=== PATIENT | female | born 2000 | race Caucasian/White ===

== ENCOUNTER 2021-12-11 11:20 | Outpatient (CLI) | payer OTHER, SELFPAY ==
--- NOTE | ~2021-12-11 | XR_ITS ---
XR lumbar spine 2-3V DATE: 12/11/2021 11:52 INDICATION: Low back pain, pelvic pain TECHNIQUE: AP, lateral, coned lateral lumbosacral views COMPARISON: 08/28/2016 lumbar spine FINDINGS: Minimal dextroscoliosis. No fracture, spondylolisthesis or bone destruction. The lumbar pedicles are intact. Lumbar levels int erspaces are well preserved. The sacrum joints are normal. IMPRESSION: Minimal dextroscoliosis Reviewed, dictated and finalized at location A. IMPRESSION: Minimal dextroscoliosis
--- NOTE | ~2021-12-11 | XR_ITS ---
XR pelvis 1-2V DATE: 12/11/2021 11:53 INDICATION: Pelvic pain, low back pain TECHNIQUE: AP pelvis COMPARISON: None FINDINGS: The pubic symphysis and sacroiliac joints are intact. No pelvic fracture or bone destructio n. Hip joint spaces are symmetric and well preserved. IMPRESSION: Negative Reviewed, dictated and finalized at location A. IMPRESSION: Negative
== END 2021-12-11 11:21 | disposition home or self-care (01) ==
PROVIDERS: PCP Internal Medicine; Visit Provider Nurse Practitioner Family
DX: M54.50 Low back pain, unspecified (principal); R10.2 Pelvic and perineal pain
CPT/HCPCS: 72100; 72170

== ENCOUNTER 2022-01-12 09:49 | Outpatient (CLI) | payer OTHER, SELFPAY ==
--- NOTE | ~2022-01-12 | MR_ITS ---
EXAMINATION: MR lumbar spine wo con DATE: 01/12/2022 10:23 INDICATION: LOW BACK PAIN . TECHNIQUE: Magnetic resonance imaging (MRI) of the lumbar spine was performed without intravenous con trast. Sequences included sagittal T2-weighted FSE, sagittal T2-weighted FS FSE, sagittal T1-weighted FSE, and axial T2-weighted FSE. COMPARISON: X-ray lumbar spine 12/11/2021 FINDINGS: The last fully formed and hydrated disc is designated L5-S1. The marrow signal is benign an d homogenous. Conus terminates at L1. Multilevel mild disc dehydration. The following disc levels are specifically discussed: T11-T12: The disc does not extend beyond the endplate margin. There is no facet joint osteoarthritis. There is no neural foraminal stenosis. There is no central canal stenosis. T12-L1: The disc does not extend beyond the endplate margin. There is no facet joint osteoarthritis. There is no neural foraminal stenosis. There is no central canal stenosis. L1-L2: The disc does not extend beyond the endplate margin. There is no facet joint osteoarthritis. T here is no neural foraminal stenosis. There is no central canal stenosis. L2-L3: The disc does not extend beyond the endplate margin. There is no facet joint osteoarthritis. T here is no neural foraminal stenosis. There is no central canal stenosis. L3-L4: The disc does not extend beyond the endplate margin. There is mild facet joint osteoarthritis. There is no neural foraminal stenosis. There is no central canal stenosis. L4-L5: Mild diffuse bulge on which is superimposed a broad-based central extrusion that extends 5 mm inferiorly along the posterior cortex of L5. There is mild facet joint osteoarthritis. There is no ne ural foraminal stenosis. There is no central canal stenosis. L5-S1: The disc does not extend beyond the endplate margin. There is mild facet joint osteoarthritis. There is no neural foraminal stenosis. There is no central canal stenosis. IMPRESSION: 1. Broad-based central disc extrusion at L4-5. 2. Multilevel mild facet arthropathy. Reviewed, dictated and finalized at location K.
== END 2022-01-12 09:50 | disposition home or self-care (01) ==
LOC: CHSIMG 09:51
PROVIDERS: PCP Nurse Practitioner Family; Visit Provider Nurse Practitioner Family
DX: M54.50 Low back pain, unspecified (principal)
CPT/HCPCS: 72148

== ENCOUNTER 2022-01-21 10:50 | Outpatient (RCR) | payer OTHER, SELFPAY ==
--- NOTE | 2022-01-21 11:31 | PTOPEVAL ---
Thank you for referring Brittney Painting to [facility].? The patient is scheduled to be seen for therapy? __2__x/week for 12 visits. Please review, sign, date and return this plan of care ARMANDO. I agree with and certify that the following plan of care is medically necessary. Referring Physician Date Admitting Provider: Attending Provider: Christiano Paiz MD Referring Provider: *PT Outpatient Evaluation Start: 01/21/22 11:01 Freq: Status: Active Protocol: Document 01/21/22 11:01 [facility] (Rec: 01/21/22 11:30 [email or web address]) Therapy Assessment Status Assessment Status Assessment Status Evaluation Evaluation Information Problem Diagnosis low back pain Onset 09/15/21 Subjective Information Pt. reports september her back Query Text:As Reported By Patient/ pain began. She reports that Family she had a gradual onset of pain no specific incident. She descirbes her low back pain directly in the middle of the back. Pt. reports that she attempted chiropractic without relief. Pt. reports that her pain is most notable with sitting and is relieved with standing. 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 She reports that her goal is to decrease her low back pain Prior Level of Function Comments Additional Prior Level of Function Pt. reports that she was Comments attending the gym frequently, but has not been able to recently due to back pain. She reports that she has no difficulty with sleeping at night. Pain Assessment Timing of Pain Assessment Timing of Pain Assessment Pre-Treatment Pain Scale Pain Scale Used Numeric (1 - 10) Self Report Pain Assessment Lower Back Reported Pain Level 3 Pain Description Aching Lowest Pain Intensity 3 Greatest Pain Intensity 5 Pain Score Pain Score 3: Self Report Interventions Used Interventions Used By Clinicians Electrical Stimulation, Exercise,Heat Cervical and Lumbar ROM Lumbar ROM Lumbar Flexion Active Floor Query Text:Hands to: Lumbar Extension (0-40) 30 Query Text:Active in Degrees
--- NOTE | 2022-02-27 15:54 | PTOPEVAL ---
Thank you for referring Brittney Painting to [facility].? The patient is scheduled to be seen for therapy? ____x/week for ___ weeks. Please review, sign, date and return this plan of care ARMANDO. I agree with and certify that the following plan of care is medically necessary. Referring Physician Date Admitting Provider: Attending Provider: Christiano Paiz MD Referring Provider: *PT Outpatient Evaluation Start: 01/21/22 11:01 Freq: Status: Active Protocol: Document 02/27/22 14:23 [facility] (Rec: 02/27/22 15:53 [facility] [email or web address]) Therapy Assessment Status Assessment Status Assessment Status Progress Evaluation Information Problem Diagnosis low back pain Onset 09/15/21 Subjective Information patient reports she feels Query Text:As Reported By Patient/ Alright this date. she Family reports she has the most trouble sitting and laying down on soft surfaces. she reports she did try to go to the gym the other night. Pain Assessment Timing of Pain Assessment Timing of Pain Assessment Assessment Pain Scale Pain Scale Used Numeric (1 - 10) Self Report Pain Assessment Lower Back Reported Pain Level 3 Pain Score Pain Score 3: Self Report Interventions Used Interventions Used By Clinicians Activity or ADL's,Education, Exercise,Traction Cervical and Lumbar ROM Lumbar ROM Lumbar Flexion Active Floor Query Text:Hands to: Lumbar Extension (0-40) 40 Query Text:Active in Degrees Lumbar Lateral Flexion Right (0-40) 40 Query Text:Active in Degrees Lumbar Lateral Flexion Left (0-40) 40 Query Text:Active in Degrees Lumbar Comments no pain with any arom lumbar mobility Lower Extremity Muscle Strength Testing General Lower Extremity Strength Gross Lower Extremity Strength -bilateral hip flexion 5/5 -bilateral knee flexion 5/5 -bilateral knee extension 5/5 -bilateral ankle dorsiflexion 5/5 Muscle Length Testing Muscle Length Testing Left Hamstring Length 20 Query Text:(90 - 90 Position) Right Hamstring Length 20 Query Text:(90 - 90 Position) General Exercise General Exercises Exercise Description Ther ex Query Text:Record Sets, Reps, -supine trunk extension Resistance, and Position stretch on stability ball x 30 seconds x 3 -prone trunk extension x 20 rep
--- NOTE | 2022-03-22 09:49 | PTOPEVAL ---
Thank you for referring Brittney Painting to [facility].? The patient is scheduled to be seen for therapy? ____x/week for ___ weeks. Please review, sign, date and return this plan of care ARMANDO. I agree with and certify that the following plan of care is medically necessary. Referring Physician Date Admitting Provider: Attending Provider: Chrisitano Paiz MD Referring Provider: *PT Outpatient Evaluation Start: 01/21/22 11:01 Freq: Status: Active Protocol: Document 03/21/22 13:00 [facility] (Rec: 03/21/22 14:02 [email or web address]) Therapy Assessment Status Assessment Status Assessment Status Re-evaluation Evaluation Information Problem Diagnosis low back pain Onset 09/15/21 Subjective Information patient reports she feels Query Text:As Reported By Patient/ Better overall since prior to Family therapy. however, she reports she continues to limit her activities due to flare ups of pain. she reports she feels therapy has helped her achieve improvement, but she is not yet back to her prior level activity tolerance/performance . Pain Assessment Timing of Pain Assessment Timing of Pain Assessment Pre-Treatment Pain Scale Pain Scale Used Numeric (1 - 10) Self Report Pain Assessment Lower Back Reported Pain Level 5 Pain Score Pain Score 5: Self Report Interventions Used Interventions Used By Clinicians Activity or ADL's,Education, Electrical Stimulation, Exercise Cervical and Lumbar ROM Lumbar ROM Lumbar Flexion Active Floor Query Text:Hands to: Lumbar Extension (0-40) 40 Query Text:Active in Degrees Lumbar Lateral Flexion Right (0-40) 40 Query Text:Active in Degrees Lumbar Lateral Flexion Left (0-40) 40 Query Text:Active in Degrees Lateral Rotation Right (0-45) 45 Query Text:Active in Degrees Lateral Rotation Left (0-45) 45 Query Text:Active in Degrees Cervical and Lumbar Muscle Testing Lumbar Strength Upper Abdominal Strength 5 Normal Lower Abdominal Strength 4+ Good+ Abdominal Obliques 5 Normal Lower Extremity Muscle Strength Testing Hip Strength Bilateral Hip Flexion Strength 5 Normal Hip Abduction Strength 5 Normal Knee Strength Bilateral Knee Flexion Strength 5 Normal Knee Extension Strength 5 Normal Ankle Strength Bilateral Ankle Dorsiflexion Strength 5 Normal Muscle Length Testin
== END 2022-03-21 15:07 | disposition home or self-care (01) ==
LOC: CHSPT 10:50
PROVIDERS: PCP Internal Medicine; Visit Provider Internal Medicine
DX: M54.50 Low back pain, unspecified (principal); S39.92XA Unspecified injury of lower back, initial encounter
CPT/HCPCS: 97012; 97014; 97016; 97110; 97161; 97530; G0283

== ENCOUNTER 2023-03-26 16:18 | Emergency (ER) | payer OTHER, SELFPAY ==
--- NOTE | ~2023-03-26 | XR_ITS ---
EXAMINATION: XR knee LT 3V DATE: 03/26/2023 18:07 INDICATION: Left knee pain. TECHNIQUE: 3 views of left knee were obtained. COMPARISON: Left knee radiographs 11/17/2009 FINDINGS: Bone alignment is normal. No fracture. Joint spaces are normal. No knee joint effusion. IMPRESSION: 1. Normal left knee. Reviewed, dictated and finalized at location E. IMPRESSION: 1. Normal left knee.
[2023-03-26 16:19] VITALS: BP 133/72; PULSE 86; RESP 20; TEMP 37.1; O2SAT 99
--- NOTE | 2023-03-26 16:19 | ED.LOWEXIN ---
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 Pain is worse on movement. No history of trauma. Knee swelling. She is able to bear weight. Onset (ago): day(s) Injury: Left: knee Severity: moderate Relieving factors: immobilization Exacerbating factors: movement Other symptoms: none Related Data Allergies Allergy/AdvReac Type Severity Reaction Status Date / Time No Known Allergies Allergy Mild Verified 03/26/23 16:30 Review of Systems Review of Systems: All systems reviewed & are unremarkable except as noted in HPI and below Constitutional: Constitutional: Reports as per HPI and Reports no additional constitutional complaints Eyes: Eyes: Reports as per HPI and Reports no additional eye complaints ENT: Reports system reviewed and no additional complaints, except as documented and Reports as per HPI Cardiovascular: Cardiovascular: Reports as per HPI and Reports no additional cardiovascular complaints Respiratory: Respiratory: Reports as per HPI and Reports no additional respiratory complaints Gastrointestinal: Gastrointestinal: Reports as per HPI and Reports no additional gastrointestinal complaints Genitourinary: Genitourinary: Reports no additional female genitourinary complaints and Reports as per HPI Musculoskeletal: Musculoskeletal: Reports no additional musculoskeletal complaints and Reports as per HPI Integumentary/Breasts: Skin/Breast: Reports system reviewed and no additional complaints, except as docu and Reports as per HPI Neurologic: Reports system reviewed and no additional complaints, except as documented and Reports as per HPI Psychiatric: Psychiatric: Reports no additional psychiatric complaints and Reports as per HPI Endocrine: Endocrine: Reports no additional endocrine complaints and Reports as per HPI Hematologic/Lymphatic: Hematologic/Lymphatic: Reports no additional hematologic/lymphatic complaints and Reports as per HPI Allergic/Immunologic: Allergic/Immunologic: Reports no additional allergic/immunologic complaints and Reports as per HPI Exam Const: General: healthy appearing and no acute distress Nutritional Appearance: well nourished Orientation/consciousness: patient oriented x3 Limitations: no limitations HENMT: Head: normal to inspection Ears: external ears normal Face/Nose/Sinus: Normal external nose present Face and sinus: normal facial exam Mouth: Yes Normal oral and palatal mucosa present Throat: posterior oropharynx normal Eyes: Conjunctivae: conjunctivae normal Pupils: Equal, round and reactive pupils present EOM: EOMs intact bilaterally Direct Ophthalmoscopy: no photophobia Neck: Neck: normal visual inspection, no lymphadenopathy and no meningeal signs Chest: Chest palpation & inspection: normal inspection of the chest Resp: Effort & Inspection: normal respiratory effort Auscultation: clear to auscultation bilaterally Cardio: Rate: regular rate Rhythm: regular rhythm GI: GI Palp: Yes Soft to palpation Auscultation: normal bowel sounds Rectal Exam: normal sphincter tone : General: Yes no CVA tenderness Back/Spine/Pelvis: Back: no CVA tenderness Skin: General skin exam: normal color Rashes: no rashes Wounds: no wounds Neuro: General: patient oriented x3, moves all extremities, no meningeal signs, no focal motor deficits and CN's II-XI intact bilaterally Cranial nerves: Yes Nystagmus not present Speech: normal speech Extrem: General: normal to inspection and no clubbing, cyanosis or edema Other: Left knee-- no joint swelling noted. Decreased range of motion. Tenderness over the patellar ligament. No tenderness
[2023-03-26 17:44] LABS: Pregnancy On Board Control Positive; Urine Pregnancy Test Negative
[2023-03-26] MEDS: IBUPROFEN 600 MG TABLET PO (18:08)
--- NOTE | 2023-03-26 18:11 | PC.NURSE ---
patient medicated for pain, see MAR. patient denies further needs, awaiting imaging. L knee elevated with ice applied
--- NOTE | 2023-03-26 18:31 | PC.NURSE ---
Dr. Youngblood at bedside for update.
--- NOTE | 2023-03-26 18:39 | PC.NURSE ---
Knee imobilzer placed on pt
[2023-03-26 18:47] VITALS: BP 128/75; PULSE 72; RESP 16; TEMP 37.2; O2SAT 97
== END 2023-03-26 18:48 | disposition home or self-care (01) ==
PROVIDERS: Emergency Provider Internal Medicine Critical Care Medicine; PCP Internal Medicine
DX: S83.92XA Sprain of unspecified site of left knee, initial encounter (principal); X58.XXXA Exposure to other specified factors, initial encounter
CPT/HCPCS: 73562; 81025; 99283; A9270; L1830

== ENCOUNTER 2023-04-09 13:52 | Outpatient (RCR) | payer OTHER, SELFPAY ==
--- NOTE | 2023-04-10 11:12 | PTOPEVAL1 ---
Assessment and note entered by JT File, PT Evaluation Information Assessment Status Evaluation Diagnosis L knee pain, patellar tendonitis Onset 04/03/2023 Subjective Information Patient reports pain started in the L knee around a year ago. She reports having played years of volleyball, gymnastics, and long jumping where her L LE has been her primary LE for jumping from. 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 She notes she visited the ER for the issue on March 26, where she was recommended to keep the knee in an immobilizer brace and use crutches. She was also given an anti -inflammatory at this visit. She received an x-ray , however has not received an MRI. She notes that the pain has been diagnosed by the doctor as jumper's knee. Since the ER visit, she reports that she has been resting the knee to keep pain levels down. Patient reports pain increases with jumping/hopping activities, which she frequently does during volleyball. She notes that walking or stairs do not increase the pain levels throughout the day Reported Pain Level Pain Score 1: Self Report Assessment PT Clinical Summary Ms. Painting is a 23 y/o female who presents to skilled physical therapy due to L knee pain. Assessment is consistent with suggesting patellar tendonitis in the L knee. Pt is currently limited in LE strength and ability to perform functional activities as squatting and jumping/hopping that she uses frequently while playing volleyball. Appropriate to continue skilled therapy to address these deficits and return to her prior level functional activity performance/quality of life. Plan of Care Interventions Electrical Stimulation,Gait Training,Hot Pack/Cold Pack,Manual Therapy,Neuro Re-education,Patient/ Caregiver Educati,Therapeutic Activities, Therapeutic Exercise,Ultrasound PT Services Indicated Yes Treatment Frequency and 2x/week for 12 visits Duration These treatments will address the objective and functional deficits as defined above. The patient will be advanced safely and appropriately in order for the patient to progress towards his/her prior level of function. Additional exercises will be introduced and as well as a comprehensive home exercise program upon discharge, if needed, ?to ensure carryover of functional gains achieved in the clinic. This treatment plan has been reviewed and agreement upon by the patient.
--- NOTE | 2023-04-10 11:12 | OPREHPOC ---
Outpatient Therapy Plan of Care This is a Multidisciplinary Plan of Care that may contain components documented by all disciplines (PT, OT, and ST.) PT Problem 1 PT Problem #1 Knowledge Deficit PT Goal 1 Goal 1. Patient to demonstrate independence with HEP to improve progress made in therapy sessions. Target Visit 6 PT Problem 2 PT Problem #2 Impaired Strength PT Goal 1 Goal 1. Patient to improve L knee extension strength to 5/5 to improve ability to jump during volleyball. 2. Patient to improve L knee flexion strength to 5 /5 to improve ability to ascend/descend flight of stairs. Target Visit 12 PT Problem 3 PT Problem #3 Impaired Lymphatic System PT Goal 1 Goal 1. Patient to report pain no greater than 1/10 with daily activity to facilitate return to prior level functional activities. Target Visit 12 Progress Partially Met PT Problem 4 PT Problem #4 Impaired Functional Mobil PT Goal 1 Goal 1. Patient to improve LEFS score equal to or less than 5% functional decline in order to improve daily activitites. 2. Patient display correct body mechanics during squatting and jumping to facilitate return to prior level functional activities. Target Visit 12
== END 2023-04-15 23:59 | disposition home or self-care (01) ==
LOC: CHSPT 13:52
PROVIDERS: PCP Internal Medicine; Visit Provider Internal Medicine
DX: M25.562 Pain in left knee (principal); M76.51 Patellar tendinitis, right knee
CPT/HCPCS: 97014; 97110; 97140; 97161; G0283